=== PATIENT | male | born 1950 | race Caucasian/White ===

== ENCOUNTER 2017-02-12 10:43 | Outpatient (CLI) | payer MEDICARE, OTHER | END 2017-02-12 10:44 | disposition home or self-care (01) | LOC: SC 10:43 | PROVIDERS: ATTEND Nurse Practitioner Family | DX: G47.33 Obstructive sleep apnea (adult) (pediatric) (principal) | CPT/HCPCS: 99214; G0463; 99212 ==

== ENCOUNTER 2018-02-10 07:50 | Outpatient (CLI) | payer MEDICARE, OTHER ==
--- NOTE | 2018-02-10 11:22 | XRAY Report ---
Procedure Date: 02/10/2018 Accession Number: [id number] / [id number] Procedure: [place] - Esophogram CPT Code: FULL RESULT: EXAM: Esophogram DATE: 02/10/2018 9:17 AM CLINICAL HISTORY: OBSTRUCTIVE SLEEP APNEA (ADULT), EPISODES OF FOOD COMPARISON: None. TECHNIQUE: Routine double contrast esophagram. Fluoroscopic exposure time: minutes. Number of fluoroscopic images: 8. Limitations: Please note that due to technical factors the relevant diagnostic images obtained during live fluoroscopy are not stored in the imaging archive. The described findings were observed during live fluoroscopy. FINDINGS: Swallowing Mechanism: Normal. No tracheal aspiration or penetration. Esophageal Motility: Normal peristaltic stripping wave. Mucosa: Limited evaluation due to limitations in gaseous distention. No ulceration or masses identified. Gastroesophageal Junction: Normal. No hernia, stricture, or significant reflux. Other: None. IMPRESSION: Normal barium swallow. RADIA
== END 2018-02-10 07:51 | disposition home or self-care (01) ==
LOC: DI 07:50
PROVIDERS: ATTEND Family Medicine
DX: R13.19 Other dysphagia (principal); G47.33 Obstructive sleep apnea (adult) (pediatric)
CPT/HCPCS: 74220

== ENCOUNTER 2018-03-05 08:53 | Outpatient (CLI) | payer MEDICARE, OTHER | END 2018-03-05 08:54 | disposition home or self-care (01) | LOC: SC 08:53 | PROVIDERS: ATTEND Nurse Practitioner Family | DX: G47.33 Obstructive sleep apnea (adult) (pediatric) (principal) | CPT/HCPCS: 99214; G0463; 99212 ==

== ENCOUNTER 2018-05-05 08:41 | Outpatient (CLI) | payer MEDICARE, OTHER | END 2018-05-05 08:42 | disposition home or self-care (01) | LOC: SC 08:41 | PROVIDERS: ATTEND Nurse Practitioner Family | DX: G47.33 Obstructive sleep apnea (adult) (pediatric) (principal) | CPT/HCPCS: 99214; G0463; 99212 ==

== ENCOUNTER 2018-07-10 10:31 | Outpatient (CLI) | payer MEDICARE, OTHER | END 2018-07-10 10:32 | disposition home or self-care (01) | LOC: SC 10:31 | PROVIDERS: ATTEND Nurse Practitioner Family | DX: G47.33 Obstructive sleep apnea (adult) (pediatric) (principal) | CPT/HCPCS: 99214; G0463; 99212 ==

== ENCOUNTER 2019-04-20 09:51 | Outpatient (CLI) | payer MEDICARE, OTHER | END 2019-04-20 09:52 | disposition home or self-care (01) | LOC: NS 09:51 | PROVIDERS: ATTEND Family Medicine | DX: Z71.3 Dietary counseling and surveillance (principal); E11.65 Type 2 diabetes mellitus with hyperglycemia | CPT/HCPCS: 97802 ==

== ENCOUNTER 2019-05-04 09:39 | Outpatient (CLI) | payer MEDICARE, OTHER | END 2019-05-04 09:40 | disposition home or self-care (01) | LOC: NS 09:39 | PROVIDERS: ATTEND Family Medicine | DX: Z71.3 Dietary counseling and surveillance (principal); E11.65 Type 2 diabetes mellitus with hyperglycemia | CPT/HCPCS: 97803 ==

== ENCOUNTER 2019-09-09 16:18 | Emergency (ER) | payer MEDICARE, OTHER ==
[2019-09-09] MEDS ORDERED: SODIUM CHLORIDE 0.9% 1,000 ML IV ONE (16:58)
[2019-09-09] MEDS ORDERED: ONDANSETRON 4 MG/2 ML VIAL IVP STA (16:58)
[2019-09-09] MEDS ORDERED: KETOROLAC 30 MG/ML VIAL IVP STA (16:58)
--- NOTE | 2019-09-09 17:02 | ED Physician Documentation ---
PD HPI ABD PAIN - Stated complaint Stated Complaint: LT SIDE PX - Chief complaint Chief Complaint: Abd Pain - History obtained from History obtained from: Patient, Family - History of Present Illness Timing - onset: Enter time (1100), Today Timing - duration: Hours Timing - details: Abrupt onset, Still present Quality: Sharp, Pain Location: LUQ Radiation: Left flank Improved by: Other (nothing) Worsened by: Other (nothing) Associated symptoms: Nausea, Vomiting. No: Fever, Dysuria Similar symptoms before: Has not had sx before Recently seen: Not recently seen - Additional information Additional information: 69-year-old male with history of type 2 diabetes obstructive sleep apnea and osteoarthritis has developed flank pain in the left side radiating around to the front as well as some nausea and vomiting. The pain is nonmodifiable and severe. He has come to the emergency department for treatment. He has not had this happen to him previously. Review of Systems Constitutional: denies: Fever, Chills, Myalgias Eyes: denies: Decreased vision Ears: denies: Ear pain Nose: denies: Rhinorrhea / runny nose, Congestion Throat: denies: Sore throat Cardiac: denies: Chest pain / pressure, Palpitations Respiratory: denies: Dyspnea, Cough GI: reports: Abdominal Pain, Nausea, Vomiting : denies: Dysuria, Frequency Skin: denies: Rash Musculoskeletal: reports: Back pain. denies: Neck pain Neurologic: denies: Generalized weakness, Focal weakness, Numbness PD PAST MEDICAL HISTORY - Past Medical History Cardiovascular: High cholesterol Respiratory: None Endocrine/Autoimmune: Type 2 diabetes HEENT: Other Psych: Anxiety Musculoskeletal: Osteoarthritis Derm: None - Past Surgical History Past Surgical History: Yes Ortho: Other - Present Medications Home Medications: Ambulatory Orders Medication Instructions Recorded Confirmed Aspirin [Aspir 81] 81 mg PO DAILY 04/22/15 06/29/15 Citalopram [CeleXA] 10 mg PO ONCE 04/22/15 06/29/15 Loratadine [Claritin] 10 mg PO DAILY 04/22/15 06/29/15 Simvastatin 20 mg PO DAILY 04/22/15 06/29/15 metFORMIN [Glucophage] 1,000 mg PO BID 04/22/15 06/29/15 Hydrocodone/Acetaminophen 1 - 2 each PO Q6H PRN #14 tablet 09/09/19 [Hydrocodon-Acetaminophen 5-325] Ondansetron Odt [Zofran] 4 mg TL Q6H PRN #10 tablet 09/09/19 - Allergies Allergies/Adverse Reactions: Allergies Allergy/AdvReac Type Severity Reaction Status Date / Time No Known Drug Allergies Allergy Verified 09/09/19 16:42 - Social History Does the pt smoke?: No Smoking Status: Never smoker Does the pt drink ETOH?: No Does the pt have substance abuse?: No - Immunizations Immunizations are current?: Yes PD ED PE NORMAL - Vitals Vital signs reviewed: Yes (normal ) - General General: Alert and oriented X 3, No acute distress, Well developed/nourished - HEENT HEENT: Atraumatic, PERRL, EOMI - Neck Neck: Supple, no meningeal sign, No bony TTP - Cardiac Cardiac: RRR, No murmur - Respiratory Respiratory: No respiratory distress, Clear bilaterally - Abdomen Abdomen: Normal bowel sounds, Soft, Non tender, Non distended, No organomegaly - Back Back: No CVA TTP, No spinal TTP - Derm Derm: Normal color, Warm and dry, No rash - Extremities Extremities: No deformity, Normal ROM s pain, No edema, No calf tenderness / cord - Neuro Neuro: Alert and oriented X 3, 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, No motor deficit, No sensory deficit, Normal speech Eye Opening: Spontaneous Motor: Obeys Commands Verbal: Oriented GCS Score: 15 - Psych Psych: Normal mood, Normal affect Results - Vitals Vitals: Vital Signs - 24 hr 09/09/19 16:36 Temperature 36.3 C L Heart Rate 72 Respiratory 17 Rate Blood Pressure 123/72 O2 Saturation 99 Oxygen O2 Source Room air - Labs Labs: Laboratory Tests 09/09/19 09/09/19 09/09/19 17:03 17:09 17:09 WBC 11.0 H RBC 4.70 Hgb 14.2 Hct 43.0 MCV 91.5 MCH 30.2 MCHC 33.0 RDW 12.5 Plt Count 214 MPV 10.5 Neut # (Auto) 9.7 H Lymph # (Auto) 0.6 L [place] # (Auto) 0.6 Eos # (Auto) 0.0 Baso # (Auto) 0.1 Absolute Nucleated RBC 0.00 Nucleated RBC % 0.0 Sodium 139 Potassium 4.2 Chloride 102 Carbon Dioxide 23 Anion Gap 14.0 H BUN 38 H Creatinine 1.3 H Estimated GFR (MDRD) 54 L Glucose 263 H Calcium 10.0 Total Bilirubin 0.8 AST 68 H ALT 51 Alkaline Phosphatase 51 Total Protein 7.9 Albumin 4.6 Globulin 3.3 Albumin/Globulin Ratio 1.4 Lipase 33 Urine Color YELLOW Urine Clarity CLEAR Urine pH 6.0 Ur Specific [place] 1.025 Urine Protein 30 H Urine Glucose (UA) 500 H Urine Ketones >=80 H Urine Occult Blood SMALL H Urine Nitrite NEGATIVE Urine Bilirubin NEGATIVE Urine Urobilinogen 0.2 (NORMAL) Ur Leukocyte Esterase NEGATIVE Urine RBC 0-5 Urine WBC 0-3 Ur Squamous Epith Cells NONE SEEN Urine Bacteria None Seen Ur Microscopic Review INDICATED Urine Culture Comments NOT INDICATED - Rads (name of study) CT ab/pel w/o Radiology: Prelim report reviewed (Impression: 1. Left mid ureteral obstruction obstructing calculus measuring 6 x 5 x 5 mm. Moderate left hydronephrosis. La rge amount of left perinephric stranding mixed with small areas of fluid. Left periureteral stranding. 2. Chronic bilateral L5 pars defect with grade 1 anterolisthesis of L5 and S1. 3. Mild fatty liver.), EMP read indepedently, See rad report Procedures - Bedside sono Bedside sono by EMP: With the use of bedside ultrasound the left kidney is imaged there is evidence of obvious hydronephrosis and the kidney is sonographically nontender. PD MEDICAL DECISION MAKING - ED course Complexity details: reviewed results, re-evaluated patient, considered differential, d/w patient, d/w family ED course: 69-year-old male with acute left flank pain has a nontender examination history is consistent with acute ureterolithiasis and the patient has hydronephrosis on bedside ultrasound exam. He is administered a liter of saline 30 mg of Toradol intravenously and 4 mg of [address]an. A CT scan of the abdomen pelvis without contrast is obtained. The CT scan scan shows a 5 x 6 mm stone in the proximal ureter the patient gets relief with Toradol and he is instructed to follow-up with Dr. Zaidi if he has not had resolution of the symptoms within 2 days. Departure - Departure Disposition: 01 Home, Self Care Clinical Impression: Ureterolithiasis Condition: Stable Instructions: ED Stone Renal W Colic Follow-Up: Zeeshan Archibald MD [Primary Care Provider] - Murphy Zaidi MD [Provider Admit Priv/Credential] - Prescriptions: Hydrocodone/Acetaminophen [Hydrocodon-Acetaminophen 5-325] 1 - 2 each PO Q6H PRN #14 tablet PRN Reason: pain Ondansetron Odt [Zofran] 4 mg TL Q6H PRN #10 tablet PRN Reason: Nausea / Vomiting
[2019-09-09 17:15] LABS: BASOPHILS # (AUTO) 0.1 10^3/uL (0.0-0.1); BASOPHILS % (AUTO) 0.5 %; EOSINOPHILS % (AUTO) 0.2 %; HGB - HEMOGLOBIN 14.2 g/dL (14.0-18.0); LYMPHOCYTES # (AUTO) 0.6 10^3/uL (1.5-3.5); LYMPHOCYTES % (AUTO) 5.1 %; MEAN CORPUSCULAR HEMOGLOBIN 30.2 pg (27.0-31.0); MEAN CORPUSCULAR VOLUME 91.5 fL (80.0-94.0); MEAN PLATELET VOLUME 10.5 fL (7.4-11.4); MONOCYTES # (AUTO) 0.6 10^3/uL (0.0-1.0); MONOCYTES % (AUTO) 5.4 %; NEUTROPHILS # (AUTO) 9.7 10^3/uL (1.5-6.6); NEUTROPHILS % (AUTO) 88.3 %; PLT - PLATELET COUNT 214 10^3/uL (130-450); RED CELL DISTRIBUTION WIDTH 12.5 % (12.0-15.0)
[2019-09-09 17:23] LABS: BILIRUBIN,URINE NEGATIVE (NEGATIVE); GLUCOSE, URINE (UA) 500 mg/dL (NEGATIVE); KETONES,URINE (UA) >=80 mg/dL (NEGATIVE); LEUKOCYTE ESTERASE, URINE NEGATIVE (NEGATIVE); NITRITE,URINE NEGATIVE (NEGATIVE); OCCULT BLOOD,URINE SMALL (NEGATIVE); PROTEIN,URINE 30 mg/dL (NEGATIVE); UROBILINOGEN,URINE 0.2 (NORMAL) E.U./dL (NORMAL)
[2019-09-09 17:27] LABS: ALBUMIN 4.6 g/dL (3.2-5.5); ALBUMIN/GLOBULIN RATIO 1.4 (1.0-2.2); BILIRUBIN,TOTAL 0.8 mg/dL (0.2-1.0); CREATININE 1.3 mg/dL (0.6-1.2); TOTAL PROTEIN 7.9 g/dL (6.7-8.2)
[2019-09-09 17:27] LABS: CLARITY,URINE CLEAR (CLEAR)
--- NOTE | 2019-09-09 17:33 | CT Report ---
Reason: flank pain, kidney stone suspected Procedure Date: 09/09/2019 Accession Number: [id number] / [id number] Procedure: CT - Abdomen/Pelvis WO CPT Code: Final Report FULL RESULT: EXAM: CT ABDOMEN AND PELVIS (CT KUB) EXAM DATE: 09/09/2019 05:18 PM. CLINICAL HISTORY: Flank pain, kidney stone suspected. COMPARISONS: None. TECHNIQUE: Routine axial helical CT imaging was performed through the abdomen and pelvis without IV contrast. Reconstructions: Coronal and sagittal. In accordance with CT protocol optimization, one or more of the following dose reduction techniques were utilized for this exam: automated exposure control, adjustment of mA and/or KV based on patient size, or use of iterative reconstructive technique. FINDINGS: Lung bases: Coronary artery calcifications. No acute findings. Liver: Mild fatty liver. Gallbladder: Unremarkable. Bile ducts: Unremarkable. Pancreas: Unremarkable. Spleen: Unremarkable. Adrenals: Nonremarkable. Kidneys: Left mid ureteral obstructing calculus measuring 6 x 5 x 5 mm. Moderate left hydronephrosis. Large amount of left paranephric stranding mixed with small areas of fluid. Left periureteral stranding. Right kidney appears unremarkable. Bowel: Normal appendix. No acute bowel findings are seen. No free fluid or free air. Pelvis: The bladder and remaining pelvic organs are unremarkable. Vasculature: No acute findings. Bones: Chronic bilateral L5 pars defects with grade 1 anteriolisthesis of L5-S1. IMPRESSION: 1. Left mid ureteral obstructing calculus measuring 6 x 5 x 5 mm. Moderate left hydronephrosis. Large amount of left paranephric stranding mixed with small areas of fluid. Left periureteral stranding. 2. Chronic bilateral L5 pars defects with grade 1 anteriolisthesis of L5-S1. 3. Mild fatty liver. RADIA
[2019-09-09 17:38] LABS: BACTERIA,URINE None Seen /HPF (None Seen); RBC,URINE 0-5 /HPF (0-5); SQUAMOUS EPITHELIAL CELL,UR NONE SEEN (<= Few)
[2019-09-09 18:41] VITALS: BP 156/70
== END 2019-09-09 18:48 | disposition home or self-care (01) ==
LOC: ED 16:18
DX: N13.2 Hydronephrosis with renal and ureteral calculous obstruction (principal); E11.9 Type 2 diabetes mellitus without complications; Z79.84 Long term (current) use of oral hypoglycemic drugs; G47.33 Obstructive sleep apnea (adult) (pediatric); M19.90 Unspecified osteoarthritis, unspecified site; Z79.82 Long term (current) use of aspirin
CPT/HCPCS: 36415; 74176; 80053; 81001; 81003; 83690; 85025; 87086; 96361; 96374; 99284

== ENCOUNTER 2019-09-24 07:11 | Day surgery (SDC) | payer MEDICARE, OTHER ==
[~2019-09-24 07:11] MED LIST: CYCLOPENTOLATE 1% OPHTH DROPS 2 ML ONE; KETOROLAC 0.45% OPHTH DROPS ONE; PHENYLEPHRINE 2.5% OPHTH 2 ML DROPS ONE; PROPARACAINE 0.5% OPHTH DROPS 15 ML ONE
[2019-09-24] MEDS ORDERED: LACTATED RINGERS 1,000 ML IV ONE (07:18)
[2019-09-24] MEDS ORDERED: PROPARACAINE 0.5% OPHTH DROPS 15 ML RIGHTEYE ONE ×2 (07:25→08:47)
[2019-09-24] MEDS ORDERED: PHENYLEPHRINE 2.5% OPHTH 2 ML DROPS RIGHTEYE ONE (07:25)
[2019-09-24] MEDS ORDERED: KETOROLAC 0.45% OPHTH DROPS RIGHTEYE ONE (07:25)
[2019-09-24] MEDS ORDERED: CYCLOPENTOLATE 1% OPHTH DROPS 2 ML RIGHTEYE ONE (07:25)
[2019-09-24] MEDS ORDERED: TRIAMCIN/MOXIFLOX OPHTHALMIC 0.6 ML VIAL IO ONE ×2 (07:26→08:57)
[2019-09-24] MEDS ORDERED: timoloL maleate 0.5% OPHTH DROPS (10ML) ONE (07:26)
[2019-09-24] MEDS ORDERED: BRIMONIDINE 0.2% OPHTH DROPS 5 ML ONE (07:26)
[2019-09-24] MEDS ORDERED: BSS/LIDOCAINE/EPINEPHRINE 1 ML SYRINGE ONE (07:27)
[2019-09-24] MEDS ORDERED: VANCOMYCIN OPHTHALMI 8MG/0.8ML 8 MG/0.8 ML SYRINGE IO ONE ×2 (07:27→08:58)
--- NOTE | 2019-09-24 08:06 | ANESTHESIA ---
Pre-Anesthesia VS, & Labs - Diagnosis Right nuclear sclerotic cataract - Procedure Right phaco with IOL implant Vital Signs: Temp Pulse Resp BP Pulse Ox 36.2 C L 72 16 149/61 H 98 09/24/19 07:19 09/24/19 07:19 09/24/19 07:19 09/24/19 07:19 09/24/19 07:19 Height 5 ft 7 in Weight (kg) 93.3 kg Body Mass Index 32.1 - NPO >8 hours - Lab Results Current Lab Results: Laboratory Tests 09/24/19 07:33: POC Whole Bld Glucose 190 H Lab results reviewed: No Home Medications and Allergies Aspirin [Aspir 81] 81 mg PO DAILY 04/22/15 Citalopram [CeleXA] 10 mg PO ONCE 04/22/15 Loratadine [Claritin] 10 mg PO DAILY 04/22/15 Simvastatin 20 mg PO DAILY 04/22/15 metFORMIN [Glucophage] 1,000 mg PO BID 04/22/15 Allergies/Adverse Reactions: Allergies Allergy/AdvReac Type Severity Reaction Status Date / Time No Known Drug Allergies Allergy Verified 09/09/19 16:42 Anes History & Medical History - Anesthetic History Anesthesia Complications: reports: No previous complications Family history of Anesthesia Complications: Denies Family history of Malignant Hyperthermia: Denies - Medical History Cardiovascular: reports: High cholesterol Pulmonary: reports: Pneumonia, Sleep apnea, CPAP use Gastrointestinal: reports: None Urinary: reports: Kidney stones Neuro: reports: None Musculoskeletal: reports: Osteoarthritis Endocrine/Autoimmune: reports: Type 2 diabetes Blood Disorders: reports: None Skin: reports: None Smoking Status: Never smoker Psychosocial: reports: No issues indicated - Surgical History General: Colonoscopy Eyes Ears Nose Throat (EENT): Cataracts Orthopedic: Arthroscopic surgery, Other Exam General: Alert, Oriented x3, Cooperative Dental: WNL, Dentures full Lower Mouth Opening: Greater than 4 Fingerbreadths Neck Mobility: Normal Mallampati classification: II Thyromental Distance: greater than 6 cm Plan Anesthesia Type: MAC Consent for Procedure(s) Verified and Reviewed: Yes Code Status: Attempt Resuscitation ASA classification: 2-Mild systemic disease Is this case an emergency?: No
[2019-09-24] MEDS ORDERED: LIDOCAINE-MPF 2% 5 ML VIAL IM ONE (08:43)
[2019-09-24] MEDS ORDERED: PROPOFOL 200 MG/20 ML VIAL IVP ONE (08:43)
[2019-09-24] MEDS ORDERED: EPINEPHrine 1 MG/ML AMP IVP ONE (08:56)
[2019-09-24] MEDS ORDERED: BRIMONIDINE 0.2% OPHTH DROPS 5 ML OPTH ONE (08:56)
[2019-09-24] MEDS ORDERED: TIMOLOL 0.5% OPHTH DROPS OPTH ONE (08:57)
[2019-09-24] MEDS ORDERED: CHONDR SULF/HYALURONATE SYRINGE IO ONE (08:57)
[2019-09-24] MEDS ORDERED: BSS/LIDOCAINE/EPINEPHRINE 1 ML SYRINGE IO ONE (08:57)
--- NOTE | 2019-09-24 09:20 | OPERATIVE REPORT ---
DATE OF SERVICE: 09/24/2019 Physician: Kash Leblanc MD PREOPERATIVE DIAGNOSIS: Visually significant cataract, right eye. Cataract surgery was performed on the left eye on 06/30/2015. POSTOPERATIVE DIAGNOSIS: Visually significant cataract, right eye. Cataract surgery was performed o n the left eye on 06/30/2015. PROCEDURE: Phacoemulsification with posterior chamber intraocular lens implant, right eye. SURGEON: Kash Leblanc MD ANESTHESIA: Monitored anesthesia care. COMPLICATIONS: None. OPERATIVE INDICATIONS: This is a 69-year-old man with progressive vision loss in the right eye due t o 2+ nuclear sclerotic and 1-2+ posterior subcapsular cataract. Best corrected visual acuity was 20/ 40, with glare to hand motion vision in the right eye. Indications for surgery were difficulty seein g words, closed caption or game scores on TV. He was consented at length concerning risks and benefi ts of cataract surgery, after which he expressed a desire to proceed with surgery. OPERATIVE PROCEDURE: Patient was taken to OR #3 and placed under monitored anesthesia care. Surgica l timeout was conducted confirming correct patient, correct procedure, and correct surgical site. He was given topical anesthesia, and prepped and draped in the usual sterile fashion. The eye was ente red at the 12 and 9 o'clock positions. Intracameral Shugarcaine was injected into the anterior chamb er, followed by Viscoat. A continuous-tear curvilinear capsulorrhexis was performed. The nucleus wa s hydrodissected and phacoemulsified. The cortex was evacuated using automated infusion and aspirati on. Provisc was injected in the capsular bag, and a 22.5 diopter intraocular lens inserted in the ba g. Infusion and aspiration was used to evacuate the viscoelastic materials. The eye was inflated to physiologic pressure using balanced salt solution and found to be watertight. Approximately 0.25 mL of a mixture of triamcinolone, moxifloxacin was injected transsclerally into the vitreous in the inf erotemporal quadrant. An additional 0.55 mL of a mixture of triamcinolone, moxifloxacin and vancomyc in was injected subconjunctivally in the superior quadrant for infection and inflammation prophylaxis . Wound integrity was checked with Weck-Lou sponges. Patient was taken from the operating room in g ood condition and given postoperative instructions. TD: 09/24/2019 09:15
[2019-09-24 09:32] VITALS: BP 135/58
== END 2019-09-24 07:12 | disposition home or self-care (01) ==
LOC: SDS 07:11
PROVIDERS: ATTEND Ophthalmology
PROC: 08RJ3JZ Replacement of Right Lens with Synthetic Substitute, Percutaneous Approach (ICD-10-PCS; principal; 2019-09-24 09:30)
DX: E11.36 Type 2 diabetes mellitus with diabetic cataract (principal); H25.811 Combined forms of age-related cataract, right eye; G47.30 Sleep apnea, unspecified; Z79.84 Long term (current) use of oral hypoglycemic drugs; Z98.42 Cataract extraction status, left eye
CPT/HCPCS: 66984; A9270; J3490; J7120; V2632